=== PATIENT | male | born 1955 | race Caucasian/White ===

== ENCOUNTER 2019-08-18 16:24 | Outpatient (RCR) | payer BC, SELFPAY | END 2019-09-04 23:59 | disposition home or self-care (01) | LOC: SPT 16:24 | PROVIDERS: Family Provider Nurse Practitioner Family; PCP Nurse Practitioner Family; Referring Provider Nurse Practitioner Family; Visit Provider Nurse Practitioner Family | DX: M17.12 Unilateral primary osteoarthritis, left knee (principal); Z47.89 Encounter for other orthopedic aftercare; Z96.652 Presence of left artificial knee joint | CPT/HCPCS: 97110; 97161 ==

== ENCOUNTER 2019-09-05 06:00 | Outpatient (RCR) | payer BC, SELFPAY | END 2019-09-22 23:00 | disposition home or self-care (01) | LOC: SPT 06:00 | PROVIDERS: Family Provider Nurse Practitioner Family; PCP Nurse Practitioner Family; Referring Provider Nurse Practitioner Family; Visit Provider Nurse Practitioner Family | DX: Z96.652 Presence of left artificial knee joint (principal); Z98.890 Other specified postprocedural states | CPT/HCPCS: 97110 ==

== ENCOUNTER 2024-09-13 21:23 | Emergency (ER) | payer OTHER, SELFPAY ==
[2024-09-13 21:24] VITALS: BP 151/94; PULSE 73; RESP 18; TEMP 37; O2SAT 97; BMI 22.8
--- NOTE | 2024-09-13 21:27 | XRR_ITS ---
PROCEDURE INFORMATION: Exam: XR Right Hip Exam date and time: 09/13/2024 9:45 PM Age: 69 years old Clinical indication: Hip pain; Right hip; Prior surgery; Surgery date: <1 month; Surgery type: RT hip surgery 2 weeks ago; Additional info: Probable hip prosthesis dislocation TECHNIQUE: Imaging protocol: Radiologic exam of the right hip. Views: 1 view hip with pelvis when performed. COMPARISON: No relevant prior studies available. FINDINGS: Tubes, catheters and devices: Right hip arthroplasty changes with superior dislocation of the femoral component outside of the acetabular component, negative for fracture seen. Bones/joints: Lumbar spine degenerative disc space disease. Soft tissues: Unremarkable. XR/XR hip RT 2-3V wo/w pel* [id number] IMPRESSION: 1. Right hip arthroplasty changes with superior dislocation of the femoral component outside of the acetabular component, negative for fracture seen. 2. Lumbar spine degenerative disc space disease.
--- NOTE | 2024-09-13 21:33 | ED_ITS ---
HPI - Extremity Problem General: Chief complaint: Extremity Injury, Lower Stated complaint: R hip pain Time Seen by Provider: 09/13/24 21:23 History of Present Illness: 69-year-old male with a history of hip p rosthesis who presents emergency room by ambulance with right hip pain. He says he says he was standing and bit down to pick something up and he felt like it popped out of place. His leg is positioned flexed and rotated over his other leg. Neurovascularly intact. No other injuries. He had the hip replaced about 4 weeks ago and [place] with Dr. Ayan Borjas. 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 He is had no issues with it until today. No trauma. Related Data Allergies Allergy/AdvReac Type Severity Reaction Status Date / Time gabapentin Allergy Unknown Unverified 08/09/19 08:25 Review of Systems Narrative: Constitutional symptoms: Negative except as documented in HPI. Skin symptoms: Negative except as documented in HPI. Eye symptoms: Negative except as documented in HPI. ENMT symptoms: Negative except as documented in HPI. Respiratory symptoms: Negative except as documented in HPI. Cardiovascular symptoms: Negative except as documented in HPI. Gastrointestinal symptoms: Negative except as documented in HPI. Genitourinary symptoms: Negative except as documented in HPI. Musculoskeletal symptoms: Negative except as documented in HPI. Neurologic symptoms: Negative except as documented in HPI. Psychiatric symptoms: Negative except as documented in HPI. Endocrine symptoms: Negative except as documented in HPI. Physical Exam Narrative: EXAM NARRATIVE: General: Alert, no acute distress. Skin: Warm, dry. Head: Normocephalic, atraumatic. Neck: Supple, trachea midline. Eye: Extraocular movements are intact. Ears, nose, mouth and throat: mucosa moist. Cardiovascular: Regular, Normal peripheral perfusion. Respiratory: Lungs are clear to auscultation, respirations are non-labored, breath sounds are equal, Symmetrical chest wall expansion. Gastrointestinal: Soft, Nontender, Non distended Musculoskeletal: Leg is flexed at the knee. Whole leg is rotated internally over his other leg. Neurological: Alert and oriented, No focal neurological deficit observed. Psychiatric: Cooperative, appropriate mood & affect. Course Vital Signs: Vital signs: Vital Signs Temperature 98.6 F 09/13/24 21:24 Pulse Rate 73 09/13/24 21:24 Respiratory Rate 18 09/13/24 21:24 Blood Pressure 151/94 09/13/24 21:24 Pulse Oximetry 97 09/13/24 21:24 Oxygen Delivery Me thod Room Air 09/13/24 21:24 MDM - Extremity (Nontraumatic) Medical Decision Making X-ray of the hip: This shows a dislocation. Second film crosstable shows that this is likely posterior. Films were interpreted by myself the emergency room provider and pending final radiology review. Consultation: I spoke with Dr. Bray as this is his patient. He recommended crosstable films and then I discussed the manner for which we would reduce this. He wants him and I knee immobilizer and will see him in clinic he said within 2 weeks. After I got off the phone his family says he has an appointment actually next Friday. Procedural sedation Time: 2244. Confirmed: Patient and procedure correct. Consent: Consent: The risks and benefits of monitored anesthesia care, including the risk of aspiration, nausea/vomiting and the risks of not performing the procedure, including severe pain and inability to complete the procedure, were all discussed with the patient. The alternatives of performing the procedure, including local anesthesia and IV analgesia, also discussed. The patient has a ride home available Indication: Closed reduction. Monitoring: Cardiac, blood pressure, continuous pulse oximetry. Preparation: Suction, IV access, Constant attendance, Supplemental oxygen. ASA Class: I- healthy patient. No significant family history of sedation complications See ER physician note for summary of the patient's present medication list and for drug allergy and intolerance history Physical exam: Airway: appears normal, Heart: regular rate and rhythm, Breath sounds: equal. Pre sedation vital signs: See nurse's notes. Procedural sedation: 150 mg IV propofol. . Post sedation vital signs: See nurse's notes. Patient tolerated: Well. Complications: The patient was recovered from the sedation without complication or incident. Post sedation condition: Patient returned to pre-sedation level of awareness. The monitoring was discontinued at this time. Performed by: Self. Notes: Pt attended by independent trained observer time of sedation was 15 minutes. . Fracuture / Dislocation procedure Time: 2244 Confirmed correct: Patient, procedure, sight. Consent: Patient Indication: Dislocation Location: Right hip. Pre procedure exam: Sensory intact, Procedural sedation: (repeat): IV propofol 150 mg Monitoring: Cardiac, blood pressure and pulse oximiter Technique: traction - counter traction. Post-procedure exam: _ alignment improved, circulatory neuro intact. Immobilization: Knee immobilizer as per orthopedics. Patient tolerated: Well Complications: None Performed by (rpt): Self Procedure time: 10 minutes Postreduction films of the right hip: This shows resolution of hip dislocation and reduction. This was reviewed and interpreted by myself the emergency room georges nick. I also reviewed the radiology report. Films were interpreted by myself the emergency room provider and pending final radiology review. Assessment and plan: Dislocation of hip prosthesis. ?Reduced. Knee immobilizer placed. - Discharged home - Discussed plan with patient. Answered any questions. - Evaluation and treatment of this problem were appropriate in the emergency setting. XR interpretation done by ED provider, pending radiology final review Discharge Plan Discharge Patient Disposition: Home Clinical Impression: Dislocation of internal right hip prosthesis Qualifiers: Encounter type: initial encounter Qualified Code(s): T84.020A - Dislocation of internal right hip prosthesis, initial encounter Condition: Stable Discharge Orders: Discharge ED (Routine); Ordered 09/13/24 Ordered By: Emma Wright Referrals: Piotr Borjas MD [Referring] - 09/20/24 (Keep your scheduled appointment with Dr. Borjas please) Sun Gonsales APN [Primary Care Provider] - Discharge Diet: As Directed Discharge Activity: Limit activity as instructed Patient Instructions: Hip Dislocation (ED), Opioid Safety, Pain Management Activity Restrictions/Additional Instructions: Keep your scheduled follow-up for Friday with Dr. Borjas. Wear knee immobilizer anytime you are up. Thank you for choosing [facility] for your healthcare needs today. Please realize this is an emergency room and that we are providing you with a medical screening exam and this may not be complete and all inclusive of all the testing and or work up that you may need to determine your ailment or severity of your illness. You have been screened and evaluated and felt safe for discharge. Health conditions do change or evolve sometimes and as such it is important that you follow up with your Primary Doctor to be re checked, 3-5 days is a general good time frame for follow up. You are always welcome to return to the ED for re assessment if your symptoms are worsening or you have new concerns Print Language: Belgian Coding Level of Care Code ED Steel Wool Machine Operator for Dc Daley
[2024-09-13] MEDS: HYDROmorphone 0.5 MG/0.5 ML INJ 1 MG IVP (22:03)
--- NOTE | 2024-09-13 22:11 | XRR_ITS ---
PROCEDURE INFORMATION: Exam: XR Right Hip Exam date and time: 09/13/2024 10:20 PM Age: 69 years old Clinical indication: Injury or trauma; Fall; Other: X table xray requested; Prior surgery; Surgery date: <1 month; Surgery type: Hip surgery; Additional info: Cross table hip requested TECHNIQUE: Imaging protocol: Radiologic exam of the right hip. Views: 1 view hip with pelvis when performed. COMPARISON: CR (PELVIS, ) 09/13/2024 9:45 PM FINDINGS: Bones/joints: Right hip arthroplasty changes with posterior dislocation of the femoral component outside of the acetabular component, negative for fracture seen. Lumbar spine degenerative disc space disease. Soft tissues: Unremarkable. XR/XR hip RT 1V wo/w pel [id number] IMPRESSION: 1. Right hip arthroplasty changes with posterior dislocation of the femoral component outside of the acetabular component, negative for fracture seen. 2. Lumbar spine degenerative disc space disease.
[2024-09-13] MEDS: ondansetron 2 mg/ML SDV 2 mL 4 MG IVP (22:49)
--- NOTE | 2024-09-13 23:00 | XRR_ITS ---
PROCEDURE INFORMATION: Exam: XR Right Hip Exam date and time: 09/13/2024 11:17 PM Age: 69 years old Clinical indication: Hip pain; Right hip; Prior surgery; Surgery date: <1 month; Additional info: Post reduction TECHNIQUE: Imaging protocol: Radiologic exam of the right hip. Views: 1 view hip with pelvis when performed. COMPARISON: CR (PELVIS, ) 09/13/2024 10:20 PM FINDINGS: Bones/joints: Right hip arthroplasty changes with reduction of the previously seen dislocation with normal anatomic alignment, negative for fracture. Soft tissues: Unremarkable. XR/XR hip RT 1V wo/w pel [id number] IMPRESSION: Right hip arthroplasty changes with reduction of the previously seen dislocation with normal anatomic alignment, negative for fracture.
[2024-09-13] MEDS: propofol 10 mg/mL SDV 20 mL 70 MG IVP ×2 (23:25→23:27)
[2024-09-13 23:32] VITALS: BP 134/103; PULSE 74; RESP 15; O2SAT 95
[2024-09-13 23:51] VITALS: BP 134/103; PULSE 70; O2SAT 95
--- NOTE | 2024-09-14 06:42 | PC.NURSE ---
Patients name is no longer listed in the pixas to waste the remainder of the propofol. Nurse wasted the propofol at the ER med counter with Eleanor TYSON and Shelby TYSON as witnesses.
--- NOTE | 2024-09-14 06:44 | PC.NURSE ---
WITNESSED PROPOFOL WASTE WITH JAH WATSON.
== END 2024-09-13 23:52 | disposition home or self-care (01) ==
PROVIDERS: Emergency Provider Emergency Medicine; PCP Nurse Practitioner Family
DX: T84.020A Dislocation of internal right hip prosthesis, initial encounter (principal); X58.XXXA Exposure to other specified factors, initial encounter
CPT/HCPCS: 27265; 36415; 73501; 73502; 96374; 96375; 99152; 99285; J1171; J2405; J2704

== ENCOUNTER 2024-12-05 14:40 | Emergency (ER) | payer OTHER, SELFPAY ==
[2024-12-05] VITALS (7 sets, daily range): BP systolic 110–147; BP diastolic 72–94; PULSE 90–111; RESP 15–16; TEMP 36.6; O2SAT 91–99; BMI 22.0
--- NOTE | 2024-12-05 14:47 | ED_ITS ---
HPI - Extremity Problem General: Chief complaint: Extremity Injury, Lower Stated complaint: HIP PAIN Time Seen by Provider: 12/05/24 14:45 History of Present Illness: 69-year-old male presents emergency room complaining of right hip pain. He was outdoors in an undeveloped area he squatted down to relieve himself and felt a popping sensation in his right hip and was unable to stand or extend at the hip. He has previously had a right hip arthroplasty he has had dislocation in the past he had this initially done in [place] in [facility] he did follow-up with him at this point they had not planned to do a revision on the hip. He denies any other injuries in the course of the fall no chest pain no abdominal pain did not strike his head there is no loss of consciousness. He arrives by ambulance had not received any pain medicine then wrote Associated symptoms: Deny chest pain, fever(s) or rash Related Data Previous Rx's ?Medication ?Instructions ?Recorded hydrocodone 5 mg-acetaminophen 325 1 tab PO Q6H PRN pa in #12 tabs 12/05/24 mg tablet Allergies Allergy/AdvReac Type Severity Reaction Status Date / Time gabapentin Allergy Unknown Unverified 08/09/19 08:25 Review of Systems Const: Denies: fever(s) or chills Card: Denies: chest pain Resp: Denies: dyspnea GI: Denies: abdominal pain : Denies: dysuria, urinary frequency or urinary urgency Musc: Reports: joint pain (Right hip); Denies: neck pain or back pain Skin/Breast: Denies: rash PFSH ED PFSH: Surgical History (Updated 12/05/24 @ 16:47 by Ritchie Beckett DO) History of total right hip arthroplasty Physical Exam Const: GENERAL APPEARANCE: cooperative ORIENTATION/CONSCIOUSNESS: Yes awake, Yes oriented to person, Yes oriented to place and Yes oriented to time HENMT: COMMON NORMALS: normocephalic, atraumatic and hearing grossly normal bilaterally HEAD & SCALP: normocephalic and atraumatic Resp: COMMON NORMALS: normal respiratory effort, No retractions, No use of accessory muscles and clear to auscultation bilaterally AUSCULTATION: clear to auscultation bilaterally Cardio: COMMON NORMALS: regular rate, regular rhythm and No murmurs present (Cardio) RATE: regular rate RHYTHM: regular rhythm GI: COMMON NORMALS: Soft to palpation and No hepatosplenomegaly present AUSCULTATION: Yes normoactive bowel sounds PALPATION: Yes Soft to palpation, No Tenderness to palpation present (GI), No Guarding due to palpation present (GI) and Yes No hepatosplenomegaly present Extremity: COMMON NORMALS: normal to inspection, capillary refill normal, no clubbing, cyanosis or edema, no calf tenderness and no pedal edema OTHER: Patient holding his right hip internally rotated and flexed at the hip. Extreme pain unable to straighten. Dorsalis pedis posterior tibialis pulses are normal Neuro: SENSORIUM/ORIENTATION: Yes oriented to person, Yes oriented to place and Yes oriented to time Skin: COMMON NORMALS: no rashes or lesions noted GENERAL SKIN EXAM: no rashes or lesions noted Procedures Orthopedic Joint Reduction Joint #1: Time Out Performed: Yes Side: right Joint Reduction Location: hip Analgesia: procedural sedation Technique used: traction/counter-traction Post-reduction neuro exam: intact Post-reduction vascular: intact Post Reduction X-Ray Obtained: Yes Post Reduction X-Ray Results: reduced Splint Applied: Yes (Knee brace) Patient Tolerated Procedure: well Additional Comments: Initially joint was reduced however by the time we are able to get x-ray to confirm it had dislocated again. We reduced again and had similar results and then we could feel clinically the reduction on palpation appeared to be fully reduced however by the time we got x-rays and it was dislocated again. On the third attempt it was reduced and the leg held immediately and full extension with traction in place and knee immobilizer with immobilizer was applied x-ray confirmed reduction of the joint. Procedural Sedation Indication: fracture/dislocation reduction ASA Class: I Preparation: clinical research monitor applied, pulse oximeter, supplemental O2 applied, suction/airway equipment at bedside and IV secured Fentanyl: IV Midazolam: IV Additional Comments: Patient given titrated doses of Versed and fentanyl. Patient given a total of 8 mg of Versed 250 mg of fentanyl and this was titrated over a period of time to achieve adequate sedation to allow for reduction. Because of the difficulty with keeping the joint in position requiring repeat dosing to reduce the dislocation 3 times before it remained in place. Course Vital Signs: Vital signs: Vital Signs Temperature 97.9 F 12/05/24 14:43 Pulse Rate 90 12/05/24 18:00 Respiratory Rate 15 12/05/24 16:54 Blood Pressure 113/78 12/05/24 18:00 Pulse Oximetry 96 12/05/24 18:00 Oxygen Delivery Me thod Nasal Cannula 12/05/24 15:00 MDM - Extremity (Nontraumatic) Medical Decision Making Given the ease with which the joint is spontaneously reducing patient will need to have orthopedic consult. He may require revision of the joint reviewed discussed this with him. Discharge the patient home with hydrocodone. Patient was also given crutches and a knee immobilizer. He will follow-up at [place] with the orthopedic surgeon originally did the hip arthroplasty Medical Records I reviewed the patient's medical records. Lab Data I reviewed the patient's lab results. Laboratory Results Ethyl Alcohol < 10 mg/dL (0-10) 12/05/24 15:10 All radiology interpretation(s) finalized by discharge Discharge Plan Discharge Patient Disposition: Home Clinical Impression: History of total right hip arthroplasty Dislocation of hip prosthesis Qualifiers: Encounter type: initial encounter Qualified Code(s): T84.029A - Dislocation of unspecified internal joint prosthesis, initial encounter Condition: Stable Prescriptions: New hydrocodone-acetaminophen 5-325 mg tablet 1 tab PO Q6H PRN (Reason: pain) Qty: 12 0RF Discharge Orders: Discharge ED (Routine); Ordered 12/05/24 Ordered By: Ritchie Beckett Referrals: Sun Gonsales APN [Primary Care Provider, Nurse Practitioner] Discharge Diet: Usual diet Discharge Activity: Limit activity as instructed Patient Instructions: Opioid Safety, Pain Management Activity Restrictions/Additional Instructions: Thank you for choosing [facility] for your healthcare needs today. It is very important that you follow up as instructed or that you return to the Emerg ency Department should you have concerns or if your condition changes or worsens in any way. You were seen in the emergency room with a dislocation of your right hip prosthesis (artificial joint). The joint was successfully reduced but in the course of reducing it it spontaneously dislocated twice and needed to be reduced a total of 3 times. You should follow-up with your primary orthopedist to discuss the number of dislocations you have had. You should avoid extreme flexion at the hip. The easiest way to do this is to wear the knee immobilizer to make it difficult to to flex completely at the hip. Recommend you keep the knee immobilizer in place and use crutches until you follow-up with your orthopedist. Print Language: Kiswahili Coding Level of Care Code ED Belt Repairer for Dc Daley
--- NOTE | 2024-12-05 14:47 | XRR_ITS ---
PROCEDURE INFORMATION: Exam: XR Right Hip Exam date and time: 12/05/2024 3:27 PM Age: 69 years old Clinical indication: Hip pain and pelvic pain; Right hip; Prior surgery; Surgery date: 1-6 months; RT hip pain; RT hip replacement x 5 mo ago with recent dislocation TECHNIQUE: Imaging protocol: Radiologic exam of the right hip. Views: 1 view hip with pelvis when performed. COMPARISON: CR XR hip RT 1V wo/w pel [id number] 09/13/2024 11:17 PM FINDINGS: Bones/joints: Superior dislocation of this patient's right hip prosthesis. The metal is intact. No fracture is seen. Soft tissues: Unremarkable. XR/XR hip RT 2-3V wo/w pel* [id number] IMPRESSION: Dislocated right hip.
[2024-12-05] MEDS: ondansetron 2 mg/ML SDV 2 mL 4 MG IVP (14:57)
[2024-12-05] MEDS: morphine 4 mg/mL SDV 1 mL IVP (14:57)
[2024-12-05 15:33] LABS: Alcohol Level < 10 mg/dL (0-10)
[2024-12-05] MEDS: fentaNYL 50 mcg/mL INJ 2mL IVP ×3 (15:42→16:31)
[2024-12-05] MEDS: fentaNYL 50 mcg/mL INJ 2mL 100 MCG IVP (16:27)
[2024-12-05] MEDS: midazolam 1 mg/mL INJ 2 mL 6 MG IVP (16:28)
[2024-12-05] MEDS: midazolam 1 mg/mL INJ 2 mL 2 MG IVP (16:28)
--- NOTE | 2024-12-05 16:36 | XR_ITS ---
WS: [id number] XR hip RT 2-3V wo/w pel* [id number] REASON FOR EXAM: POST REDUCTION RT HIP FINDINGS: Soft tissue swelling soft tissue swelling superior and medial to the femoral component of the total right hip arthroplasty. Gnosticism of normal anatomic alignment of the previously anteriorly dislocated total right hip arthroplasty. Moderately displaced very small fracture fragment from the medial greater tuberosity. XR/XR hip RT 2-3V wo/w pel* [id number] IMPRESSION: Reduction of previous total right hip arthroplasty dislocation. Very small avu lsion fracture from the greater trochanter.
== END 2024-12-05 18:03 | disposition home or self-care (01) ==
PROVIDERS: Emergency Provider Family Medicine; PCP Nurse Practitioner Family
DX: T84.020A Dislocation of internal right hip prosthesis, initial encounter (principal); X58.XXXA Exposure to other specified factors, initial encounter; Z96.641 Presence of right artificial hip joint
CPT/HCPCS: 27265; 73502; 80307; 94799; 96374; 96375; 99152; 99285; J2250; J2270; J2405; J3010

== ENCOUNTER 2025-01-17 12:41 | Emergency (ER) | payer OTHER, SELFPAY ==
[2025-01-17 12:46] VITALS: BP 150/92; PULSE 87; RESP 16; TEMP 36.7; O2SAT 94; BMI 20.5
--- OUTSIDE RECORDS SUMMARY | 2025-01-17 12:54 | XMS_ITS | Data Portability ---
Author Organization [facility] - Piotr Upton, [facility] Address [address] [place] [address] Assessment No assessment recorded. Plan of Treatment Reminders Order Date Submit Date Provider Last Modified By Organization Details Last Modified Time Details Appointments None recorded. Lab rapid strep group A, throat 2019 020 [email or web address] Not available 0 08:32:45 Referral None recorded. Procedures None recorded. Surgeries None recorded. Imaging None recorded. Medication Orders dexamethas one sodium phosphate 10 mg/mL injection solution 2019 020 [email or web address] Not available 0 16:16:00 Zyrtec-D 5 mg-120 mg tablet,ext ended release 2019 020 [facility]FACE [facility], [address] [place] [address], [id number], 0 16:15:34 Augmentin 875 mg-125 mg tablet 2019 020 [facility], [address] [place], [address], 0 16:15:34 promethazi ne 6.25 mg-codeine 10 mg/5 mL syrup 2019 020 [facility], [address] [place], [address], 0 16:15:35 Patient TargetsNo targets recorded. Patient Instructions Encounter Date Encounter Id Patient Instructions Last Modified By Organization Details Last Modified Time 08/30/2019 [id number] Clinic note and treatment plan reviewed. I agree with plan and will cont to monitor. [email or web address] Not available 08/31/2019 08:38:48 Reason for Referral None Reported. Results Created Date Observation Date Name Description Value Unit Range Abnormal Flag Note LastModifiedBy Organization Detail LastModifiedTime Result Notes None recorded. Problems Name Problem SNOMED Code Status Onset Date Resolution Date Notes Provider Name and Address Organization Details Recorded Time Degeneratio n of interverteb ral disc 10964682 Active 2019 [place] 0 15:44:42 History of total knee arthroplast y 3860318568710 Active 2019 [place] [place] 0 15:44:48 Problem Notes None recorded. Procedures Surgical History Date Name Laterality Status Provider Name and Address Organization Details Recorded Time [facility] 15:47:04 [facility] 08/30/2019 15:47:18 [facility] 08/30/2019 15:47:24 Imaging Results None recorded. Procedure Notes None recorded. Medical Equipment None Reported. Allergies Allergen ID Allergen Name Allergen Category Reaction Reaction Severity Criticality Documentation Date Start Date Code Code System Note Provider Name and Address Organization Details Recorded Time 21710 gabapenti n medicatio n Not available Not available Not available 08/30/2019 12759 [facility]Norm [facility] [place] 0 15:43:35 Medications Name Sig Start Date Stop Date Status Note LastModified by Organization Details LastModified Time cyclobenzap rine 10 mg tablet active Not Available Not Available Not Available promethazin e-DM 6.25 mg-15 mg/5 mL oral syrup 08/30 completed Not Available Not Available Not Available Zyrtec-D 5 mg-120 mg tablet,exte nded release Take 1 tablet every 12 hours by oral route. 2019 active Not Available Not Available Not Avai lable azithromyci n 250 mg tablet 08/30 completed Not Available Not Available Not Available promethazin e 6.25 mg-codeine 10 mg/5 mL syrup TAKE FIVE ML BY MOUTH EVERY 6 HOURS active Not Available Not Available No t Available lorazepam 0.5 mg tablet active Not Available Not Available Not Available hydrocodone 7.5 mg-acetamin ophen 325 mg tablet 1-2 every 4 hours active Not Available Not Available No t Available diclofenac sodium 50 mg tablet,dinah yed release active Not Available Not Available Not Available levofloxaci n 500 mg tablet 08/30 completed Not Available Not Available Not Available dexamethaso ne sodium phosphate 10 mg/mL injection solution Take 1 mL by injection route. 2019 active Not Available Not Available Not Avai lable amoxicillin 875 mg-potassiu m clavulanate 125 mg tablet TAKE ONE TABLET BY MOUTH EVERY TWELVE HOURS FOR SEVEN DAYS active Not Available Not Available No t Available olmesartan 40 mg tablet bid active Not Available Not Available Not Available Vitals Date Recorded Body weight Heart rate Oxygen saturation Oxygen saturation in Arterial blood by Pulse oximetry Systolic And Diastolic Provider Name and Address Organization Details Last Updated DateTime 0 76299.3 4 g 86 /min 98 % 98 % 140/92 mm[Hg] Nick Upton 0 15:43:21 Social History Question Answer Notes LastModified by Organizat ion Details LastModified Time Tobacco Smoking Status Current Every Day Smoker Not Available [facility] 05/09/2020 03:38:55 Are You Blind Or Do You Have Difficulty Seeing? No [id number] Information n ot available 05/09/2020 What Is Your Level Of Caffeine Consumption? Heavy [id number] Information not available 05/09/2020 In The 14 Days Before Symptom Onset, Have You Had Close Contact With A Laboratory-confirm ed COVID-19 While That Case Was Ill? No [id number] Information n ot available 05/09/2020 In The 14 Days Before Symptom Onset, Have You Had Close Contact With A Person Who Is Under Investigation For COVID-19 While That Person Was Ill? No [id number] Information not available 05/09/2020 Have You Been To An Area Known To Be High Risk For COVID-19? No [id number] Information not available 05/09/2020 Are You Deaf Or Do You Have Serious Difficulty Hearing? No [id number] Information not available 05/09/2020 What Type Of Diet Are You Following? REGULAR [id number] Information n ot available 05/09/2020 Hard Of Hearing Or Deaf In One Or Both Ears? No [email or web address] Information not available 08/30/2019 Legally Blind In One Or Both Eyes? No [email or web address] Information no t available 08/30/2019 Live Alone Or With Others? With Others [email or web address] Information not available 08/30/2019 Risk Assessment Low [email or web address] Informati on not available 08/30/2019 Marital Status [email or web address] Informatio n not available 08/30/2019 How Many Children Do You Have? 2 [id number] Information not available 05/09/2020 Performs Monthly Self-breast Exam? No Information no t available 08/30/2019 Seat Belts Used Routinely Yes Information not available 08/30/2019 Are You Sexually Active? Yes [id number] Information not available 05/09/2020 Smoke Alarm In Home Yes [email or web address] Information not available 08/30/2019 Are You Passively Exposed To Smoke? No [email or web address] Information no t available 08/30/2019 General Stress Level High [email or web address] Information not available 08/30/2019 Do You Use Sunscreen Routinely? Yes [id number] Information not available 05/09/2020 How Many Years Have You Smoked Tobacco? 45 [id number] Information not available 05/09/2020 Do You Have Difficulty Walking Or Climbing Stairs? No [id number] Information not available 05/09/2020 Sex: Unknown Functional Status Question Answer Note LastModified by Organizat ion Details LastModified Time What is your level of alcohol consumption? Moderate [id number] Information not available 05/09/2020 Do you or have you ever used smokeless tobacco? Never used smokeless tobacco [id number] Information not available 05/09/2020 Are you currently employed? Yes [id number] Information not available 05/09/2020 Do you have difficulty doing errands alone? No [id number] Information not available 05/09/2020 Are you able to care for yourself? Yes [id number] Information not available 05/09/2020 What is your occupation? [employer] [id number] Information not available 05/09/2020 Do you have difficulty dressing or bathing? No [id number] Information not available 05/09/2020 Do you or have you ever used e-cigarettes or vape? Never used electronic cigarettes [id number] Information not available 05/09/2020 What is your exercise level? None [id number] Information not available 05/09/2020 Mental Status Question Answer Note LastModified by Organization D etails LastModified Time Do you have difficulty concentrating, remembering or making decisions? No [id number] Information no t available 05/09/2020 Family History Nothing Reported. Medical History No medical history recorded. Past Encounters Encounter ID Performer Location Encounter Start Date Encounter Closed Date Diagnosis/Indication Diagnosis SNOMED-CT Code Diagnosis ICD10 Code Diagnosis Note [id number] [facility] Main Office [address] [place] [id number] 08/30/2019 15:14:33 08/30/2019 16:16:41 Acute sinusitis 31771443 J01.90 strep negative. Advised pt that pain is most likely from intubation s/p surgery that is begin aggravated by sinus drainage. pt advised to complete course of antibiotic s, alternate tylenol/ib u for fever, stay well hydrated, and to follow up to clinic if symptoms don't resolve or worsen Health Concerns Section Related Observation LastModified by Organization Detai ls LastModified Time None Recorded Concern Status LastModified by Organization Details LastModified Time None Recorded Advance Directives Directive None Recorded Payers Insurance Date Sequence Insurance Name Policy Number Policy [employer] Covered Member ID [employer] Member ID Guarantor Name 08/30/2019 1 [place] [id number] Tadeo Ta [id number] Tadeo Ta Notes Date Note Type Note Provider Name and Address Organization Details Recorded Time 08/30/2019 text/html Throat PainReported bypatient.Location :bilateral Quality:sharp Severity:mild Context:URI; trauma; stress; contacts with URI Alleviating Factors:antihistam benoit Associated Symptoms:no coughing with sputum; no throat tickle/itch; no globus sensation; no dysphagia; no burping; no neck/shoulder muscle tension; no weight loss; no fever; no lump in neck; no dyspnea; no daytime somnolence; no ear pain; no ear infection; no nasal congestion; no postnasal drip; no oral mucosal lesion; no hemoptysis;stress; choking;odynophagi a;hoarseness;loss of appetite New pt here for a swollen throat x3 weeks, he states that he has difficulty swallowing since post-knee replacement also x3 weeks ago. He is having dysphagia as well as pain when trying to swallow, he has no prior h/o issues with this. He is also having s/sx of a sinus infection Piotr Upton MD [address] [place], [phone], [place] [facility] Piotr Upton 08/31/2019 08:38:52
--- OUTSIDE RECORDS SUMMARY | 2025-01-17 12:55 | XMS_ITS | Patient Health Record ---
Author Organization [facility] Address [address] [place] [address] Care Team Providers [place] [employer] Name Role Phone Dru [facility] Primary Care Provider Shaun Babcock Unavailable [phone] GONSALES, [facility] Unavailable Unavailable Allergies Allergen (clinical drug ingredient) Drug/Non Drug Allergy documented on EMR Reaction Allergy Type Onset Date Status azithromycin Azithromycin rash Drug Allergy 03/11/2024 Active Results Component Value Reference Range Flag Notes CBC w\ Auto Diff 16001 Reviewed date:11/18/2024 09:15:14 AM Interpretation: Performing Lab: Notes/Report: Diagnosis Description: Essential (primary) hypertension WBC 8.4 4.5-11.0 X10'3 RBC 6.53 4.50-5.90 X10'6 HI Hgb 17.1 13.5-17.5 G/DL Hct 56.8 41.0-53.0 % HI MCV 87.0 80.0-100.0 FL MCH 26.2 27.0-31.0 PG LOW MCHC 30.1 31.0-37.0 G/DL LOW Platelet 286 150-400 X10'3 RDW-SD 62.9 35.0-49.0 FL HI RDW-CV 20.5 12.2-15.6 % HI MPV 10.6 9.2-12.0 FL Neutro Auto% 62.4 40.0-70.0 % Lymph Auto% 22.0 22.0-44.0 % Avery Auto% 7.1 3.0-7.0 % HI Eos Auto% 6.2 2.0-4.0 % HI Baso Auto% 2.1 0.0-1.0 % HI Imm Gran% .2 .0-.4 % Neutro Abs 5.24 .80-7.70 Absolute Neutrophil Count 5240 NA Lymph Abs 1.85 .10-4.10 Avery Abs .60 .20-1.00 Eos Abs .52 .00-.40 HI Baso Abs .18 .00-.20 Imm Gran Abs .02 .00-.10 NRBC# .00 .00-.20 NRBC% .00 .00-.20 /100 intact WBC's Comprehensive Metabolic Pane l (CMP) 93122 Reviewed date:11/18/2024 09:15:37 AM Interpretation: Performing Lab: Notes/Report: Diagnosis Description: Essential (primary) hypertension Glucose Serum 70 71-110 MG/DL LOW Testing p erformed at [facility], [address] [place] [address] [place] [address]. CLIA ID#: [id number] BUN 13 7-21 MG/DL Creat .77 .57-1.17 MG/DL J-yzbvda-f-benzoquinon e imine (NAPQI) is a metabolite of acetaminophen, NAPQI concentrations of apparoximately 10 mg/L correlation to toxic levels of acetaminophen demonstrates a greater than or equil to 10% change in results. NAPQI concentrations greater than this may lead to falsely depressed results for patient samples. Use of this assay is not recommended for patients undergoing treatment with phenindione, due to the potential for falsely depressed results. GFR 97.6 NA Calculation pe rformed from GFR calculator provided by the [employer]. Glomerular Filtration rate(GRF) is the best overall index of kidney function. Normal GFR varies according to age,sex, body size, and declines with age. The [employer] recommends using the CKD-EPI Creatinine Equation(2020) to estimate GFR. BUN/Creat Ratio 16.9 12.0-20.0 % Total Protein 7.5 5.8-8.0 G/DL Albumin 4.3 3.2-4.8 G/DL Globulin 3.2 2.3-3.5 G/DL Alb/Glob 1.3 0.8-2.2 Calcium 9.2 8.7-10.4 MG/DL Sodium 136 136-145 MMOL/L Potassium 4.8 3.5-5.1 MMOL/L Chloride 100 98-107 MMOL/L CO2 26.7 20.0-31.0 MMOL/L Anion Gap 14 5-15 Alk Phos 128 46-116 HI Bili Total .4 .3-1.2 MG/DL Use of this assay is not recommended for patients undergoing treatment with eltrombopag due to the potential for falsely elevated results. AST/SGOT 27 15-37 UNIT/L ALT/SGPT 19 12-78 UNIT/L Osmo Serum,Calculated 281 280-300 MOSM/KG Lipid Panel Reflex DLDL 8006 1, 49984 Reviewed date:11/18/2024 09:03:08 AM Interpretation: Performing Lab: Notes/Report: Diagnosis Description: Essential (primary) hypertension Trig 66 NA Classification Guidelines:Triglyceride s Adults: >20yrs Desirable <150 Borderline High 150-199 High 200-499 Very high >=500 Children: Male 0-4 yr 22-99 5-9 yr 30-101 10-14 yr 32-125 15-19 yr 37-148 Children: Female 0-4 yr 34-112 5-9 yr 32-105 10-14 yr 37-131 15-19 yr 39-132 Chol 159 <=200 MG/DL HDL 83 30-72 MG/DL HI Reference Ranges:HDL Male: 5-9y 38-75 10-14y 37-74 15-19y 30-63 >=20y 40-59 Female: 5-9y 36-73 10-14y 37-70 15-19y 35-74 >=20y 40-59 CH/HDL 1.9 0.0-4.9 RATIO LDL 63 0-130 MG/DL LDL result is inaccurate , if Trig is >400 mg/dl. See DLDL result. Thyroid Stimulating Hormone (TSH) 96147 Reviewed date:11/18/2024 09:02:46 AM Interpretation: Performing Lab: Notes/Report: Diagnosis Description: Encounter for screening for other suspected endocrine disorder TSH 1.569 .358-3.740 MlU/ML PSA Medicare Screening--G010 3 Reviewed date:11/18/2024 09:14:49 AM Interpretation: Performing Lab: Notes/Report: Diagnosis Description: Encounter for screening for malignant neoplasm of prostate PSA 2.35 .00-4.00 NG/ML PSA concen trations, regardless of the value, should not be interpreted as definitive evidence for the presence or absence of prostate cancer. Cervical Spine AP/Lat 2-3 Vi ews-[id number] Reviewed date:11/25/2024 07:19:37 AM Interpretation: Performing Lab: Notes/Report: [id number]=iSite Hip 2-3 View Uni Right w/ Pe lvis--03385 Reviewed date:08/05/2024 01:02:14 PM Interpretation: Performing Lab: Notes/Report: See Below For Report Hip 2-3 View Uni Right w/ Pelvis Read See Below For Report IH Lumbosacral Spine Comp AP /Lat w/ Obl - 00074 Reviewed date:08/05/2024 01:02:25 PM Interpretation: Performing Lab: Notes/Report: [id number]&org=iSite IH Lumbosacral Spine Comp AP /Lat w/ Obl - 71206 Reviewed date:08/05/2024 01:03:18 PM Interpretation: Performing Lab: Notes/Report: See Below For Report Lumbosacral Spine Comp AP/Lat w/ Obl Cervical Spine AP/Lat 2-3 Vi ews-[id number] Reviewed date:11/25/2024 07:16:03 AM Interpretation: Performing Lab: Notes/Report: See Below For Report Cervical Spine AP/Lat 2-3 Views Diagnosis Description: Cervicalgia Read See Below For Report IH Shoulder Min 3V Right - 7 3030 Reviewed date:11/25/2024 07:16:32 AM Interpretation: Performing Lab: Notes/Report: [id number]=iSite IH Shoulder Min 3V Right - 7 3030 Reviewed date:11/25/2024 07:15:27 AM Interpretation: Performing Lab: Notes/Report: See Below For Report Shoulder Min 3V Right Diagnosis Description: Pain in unspecified shoulder CT Lung Cancer Screening Low Dose-06519 Reviewed date:12/20/2024 04:14:40 PM Interpretation: Performing Lab: Notes/Report: [id number]&org=iSite Schedule Confirmation Reviewed date:12/21/2024 01:16:55 PM Interpretation: Performing Lab: Notes/Report: CT Lung Cancer Screening Low Dose CT Lung Cancer Screening Low Dose-36025 Reviewed date:12/21/2024 01:17:20 PM Interpretation: Performing Lab: Notes/Report: See Below For Report CT Lung Cancer Screening Low Dose Diagnosis Description: Tobacco use disorder, Mild Read See Below For Report Schedule Confirmation (Not y et reviewed by provider) Interpretation: Performing Lab: Notes/Report: CT Lung Cancer Screening Low Dose Lumbosacral Spine Comp AP/La t w/ Obl-19917 Reviewed date:08/26/2024 11:44:44 AM Interpretation: Performing Lab: Notes/Report: Hip 2-3 View Uni Right w/ Pe lvis--71851 Reviewed date:08/05/2024 01:02:45 PM Interpretation: Performing Lab: Notes/Report: [id number]=iSite Reason For Referral Reason Patient has fracture and has been seen by Dr. Borjas in past. Diagnosis 1 Impacted fracture (T 14.8XXA) Referral Organization [facility] Referring Provider First Name Sun Referring Provider Last Name Gonsales Referring Provider Speciality Nurse Leon pineda Referred Provider Piotr Borjas Referred Provider Specialty Orthopedic S urgery General Notes Bhavna Owusu 07/08 04:33:07 PM >Patient has apt on 08/04., Bhavna Owusu 08/26/2024 03:10:20 PM >Requested records.Francoise Susan 08/27/2024 09:29:51 AM >See records Referral Priority Routine Referral Appointment Date 08/23/[address] 12/21: 1 wk per Sadiq Scheduled 12/21/2024 @10:30 AM Diagnosis [address] (R 93.89) Referring Provider First Name SUN Referring Provider Last Name GONSALES Referring Provider Speciality Family Pra ctice Referred Organization [facility] Referred Provider Shaun Babcock Referred Address [address] [place] [address] [address],[place],[address] Referred Provider Specialty Pulmonary Di seases General Notes Rose Du 12/21 01:42:26 PM >Scheduled 12/21/2024 @10:30 AM Referral Priority Stat Reason Patient had abnormal CT Lung Cancer Screening and is needing follow up eval. Diagnosis [address] lung scr eening (R91.8) Referral Organization [facility] [place] [facility] Referring Provider First Name Sun Referring Provider Last Name Gonsales Referring Provider Speciality Nurse Prac miriam Referred Organization [facility] Referred Provider Shaun Babcock Referred Address [address],[address] Referred Provider Specialty Pulmonary Di seases General Notes Bhavna Owusu 12/06 04:02:59 PM >Patient has apt for 12/29/2024 with Pulm., Bhavna Owusu 12/30/2024 08:57:32 AM >See referral notes Referral Priority Routine Referral Appointment Date 12/29/2024 Medications Medication SIG (Take, Route, Frequency, Duration) Notes Start Date End Date Status Pantoprazole Sodium 40 MG Tablet Delayed Release 1 tablet 1/2 to 1 hour before morning meal Orally Once a day; Duration: 30 day(s) 12/13/2024 Active Omeprazole 20 MG Capsule Delayed Release 1 cap Oral Once a day; Duration: 30 days Active busPIRone HCl 10 MG Tablet 1/2 - 1 table t Orally Twice a day; Duration: 30 days 12/13/2024 03/13/2025 Active Albuterol Sulfate HFA 108 (90 Base) MCG/ACT Aerosol Solution 2 puffs Inhalation four times a day prn; Duration: 30 days 05/15/2023 Active traMADol HCl 50 mg Tablet TAKE ONE TABLE T BY MOUTH EVERY 4 HOURS NEEDED FOR SEVERE PAIN FOR 30 DAYS; Duration: 30 days 12/30/2024 Active Sertraline HCl 50 mg Tablet TAKE ONE TAB LET BY MOUTH EVERY DAY; Duration: 90 Active HYDROcodone-Acetaminophen 5-325 MG Tablet Oral; Duration: 3 Days Ac tive Famotidine 40 MG Tablet 1 tablet Orally Once a day in evening; Duration: 30 days 12/13/2024 Active Cyclobenzaprine HCl 10 MG Tablet 1 tab Oral three times a day prn muscle spasms; Duration: 30 days Active CeleBREX 200 MG Capsule 1 cap Orally Onc e a day pc; replaces ibuprofen; Duration: 30 days 10/14/2024 02/11/2025 Active Olmesartan Medoxomil 20 MG Tablet one tablet Orally twice a day for blood pressure; Duration: 30 days Active Immunizations Vaccine Route Administration Date Status Comme nts COVID-19 Vaccine (Moderna) Dose #2 Unknown 05/04/2021 Administered COVID-19 Vaccine (Moderna) Dose #2 Unknown 12/28/2021 Administered Fluarix Quadrivalent Unknown 04/21/2023 Administered Flucelvax Quadrivalent Pres Free Unknown 08/05/2019 Administered Flucelvax Quadrivalent Pres Free IM Intramuscular 04/16/2022 Administered [facility] [phone] pt tolerated well/instructed to wait 20 min Flulaval, Trivalent, Syringe, 0.5mL, PF Unknown 04/12/2024 Administered Social History Tobacco Use: Social History Observation Description Date Details (start date - stop date) Former Smoker NA - NA Social History Depression Screening Social Info Question Answer Notes depression screening findings Findings Negative (0 -4) PHQ-9 Little interest or p arpit in doing things Not at all Feeling down, depressed, or hopeless Not at all Trouble falling or staying asleep, or sleeping t oo much Not at all Feeling tired or having little energy Not at all Poor appetite or overeating Not at all Feeling bad about yourself, or that you are a failure, or have let yourself or your family down Not at all Trouble concentrating on thi ngs, such as reading the newspaper or watching television Not at all Moving or speaking so slowly that other people could have noticed. Or the opposite ? being so fidgety or restless that you have been moving around a lot more than usual Not at all Thoughts that you would be b rosaline off , or of hurting yourself in some way Not at all Total Score 0 Drugs/Alcohol: Social Info Question Answer Notes Alcohol Screen (Audit-C) Did you have a drink containing alcohol in the past year? Yes How often did you have a drink containing alcohol in the past year? 2 to 3 times a week (3 points) How many drinks did you have on a typical day when you were drinking in the past year? 1 or 2 drinks (0 point) How often did you have 6 or more drinks on one occasion in the past year? Less than monthly (1 point) Points 4 Interpretation Positive Drugs Have you used drugs other than those for medical reasons in the past 12 months? No Comprehensive Health Assessm ent Social Info Question Answer Notes *Social Determinants of Health Has lack of transportation kept you from medical appointments, meetings, work or from getting things needed for daily living? No Recently, have you worried t hat your food would run out before you got money to buy more? No Do you feel physically and emotionally safe wher e you currently live? Yes Are you worried about losing your housing? No Tobacco Use: Social Info Question Answer Notes Tobacco Control (Standard) Tobacco use: Former smoker Additional Findings: Tobacco user e-cigarette Additional Details Category Social Info Options Details Drugs/Alcohol: Do you smoke marijuana? De nies Do you drink alcohol? Yes Section Notes: Depression screen complete 04/04/2022 04/04/2022 Depression screen complete score 0 Depression screen complete score 0 Depression screen complete score 0 Depression screen complete Depression screen complete Depression screen complete 04/04/2022 Depression screen complete score 0 Depression screen complete score 0 Problems Problem Type SNOMED Code ICD Code Onset Dates Problem Status W/U Status Risk Notes Problem Weakness (47199546) Weakness (R53.1) Active con firmed Problem Fatigue (86212208) Other fatigue (R53.83) Active confirmed Problem Bronchitis (71755869) Bronchitis (J40) Active confirmed Problem Anxiety (17407315) Anxiety (F41.9) Active confi rmed Problem Neck pain (14879117) Neck pain (M54.2) Active confirmed Problem Screening for colon cancer (711418194) Screening for colon cancer (Z12.11) Active confirmed Problem Radiology result abnormal (207004170) Abnormal chest CT (R93.89) Active confirmed Problem Exacerbation of moderate persistent asthma (disorder) (814566097) Moderate persistent asthmatic bronchitis with acute exacerbation (J45.41) Active confirmed Problem Laryngitis (19277056) Laryngitis (J04.0) Active confirmed Problem Gouty arthritis (83618178) Gouty arthritis (M10.9) Active confirmed Problem Breathing painful (86064264) Rib pain on left side (R07.81) Active confirmed Problem Weight loss (157434876) Weight loss (R63.4) Active confirmed Problem Depression screening (381067969) Depression screen (Z13.31) Active confirmed Problem Pain in right foot (354752213174043) Right foot pain (M79.671) Active confirmed Problem Idiopathic gout (82050291) Acute idiopathic gout of right foot (M10.071) Active confirmed Problem Shoulder joint pain (019594947) Acute pain of right shoulder (M25.511) Active confirmed Problem Leukocytosis (519989877) Leukocytosis, unspecified type (D72.829) Active confirmed Problem Lipid screening (650924275) Lipid screening (Z13.220) Active confirmed Problem Gastroesophageal reflux disease (998911001) GERD (gastroesophageal reflux disease) (K21.9) Active confirmed Problem Fall () Fall, initial encounter (W19.XXXA) Active confirmed Problem Thyroid disorder screening (561949440) Thyroid disorder screen (Z13.29) Active confirmed Problem Cigar smoker (65704903) Cigar smoker (F17.290) Active confirmed Problem Exposure to COVID-19 (175629978) Exposure to COVID-19 virus (Z20.822) Active confirmed Problem Primary hypertension (05483815) Primary hypertension (I10) Active confirmed Problem Acute cough (219637593688019379 ) Acute cough (R05.1) Active confirmed Problem Cough (92813461) Cough (R05.9) Active confirmed Problem 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) (3573709650) 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 confirmed Problem Primary osteoarthritis (757838921) Primary osteoarthritis involving multiple joints (M15.9) Active confirmed Vital Signs Heart Rate 92 /min 01/06/2025 Temperature 97.7 degrees Fahrenheit 01/06/2025 Respiratory Rate 18 /min 01/06/2025 Height-cm 175.26 cm 01/06/2025 Oximetry 97 % 01/06/2025 Blood pressure diastolic 62 mm Hg 01/06/2025 Weight-kg 57.1 kg 01/06/2025 Height 69 in 01/06/2025 Blood pressure systolic 113 mm Hg 01/06/2025 Weight 125.88 lbs 01/06/2025 BMI 18.59 kg/m2 01/06/2025 Encounters Encounter Location Date Provider Diagnosis [facility] [address] [address] 03/09/2024 Sun Gonsales Cigar smoker F17.290 ; Bronchitis J40 ; Cough R05.9 ; COVID U07.1 and Lumbar pain M54.50 [facility] [address] [address] 03/11/2024 [facility] Cigar smoker F17.290 ; Bronchitis J40 ; Cough R05.9 ; Wheezes R06.2 ; COVID U07.1 and Rash R21 [facility] [address] [address] 07/30/2024 [facility] Encounter for Medica re annual wellness exam Z00.00 ; Primary hypertension I10 ; Lumbar pain M54.50 ; Hip pain M25.559 and Fall (on) (from) other stairs and steps, initial encounter W10.8XXA [facility] [address] [address] 08/13/2024 [facility] Hospital discharge follow-up Z09 and Hip pain M25.559 [facility] [address] [address] 11/16/2024 [facility] Colon cancer screeni ng Z12.11 ; Shoulder pain M25.519 ; Neck pain M54.2 ; Primary hypertension I10 ; Prostate cancer screening Z12.5 ; Thyroid disorder screen Z13.29 ; Primary osteoarthritis involving multiple joints M15.9 ; Muscle spasm M62.838 and GERD (gastroesophageal reflux disease) K21.9 [facility] [address] [address] 12/13/2024 [facility] Depression screen Z13.31 ; Cigar smoker F17.290 ; Hip pain M25.559 ; Weight loss R63.4 ; Sore throat J02.9 ; GERD (gastroesophageal reflux disease) K21.9 ; Anxiety F41.9 and Tobacco abuse Z72.0 [facility] [address] [place] [address] 12/29/2024 Shaun Babcock Abnormal chest CT R93.89 ; Shortness of breath R06.02 and History of cigar smoking Z87.891 [facility] [address] [place] [address] 01/06/2025 Shaun Babcock Abnormal chest CT R93.89 ; Shortness of breath R06.02 and History of cigar smoking Z87.891 [facility] [address] [place] [address] 02/09/2024 [facility] [address] [place] [address] 02/26/[address] [facility] [address] [place] [address] 03/04/2024 [facility] [address] [place] [address] 08/02/2024 [facility] Impacted fracture T14.8XXA and Right hip pain M25.551 [facility] [address] [place] [address] 10/14/2024 [facility] [address] [place] [address] 10/28/2024 [facility] [address] [place] [address] 12/13/2024 [facility] Tobacco abuse Z72.0 [facility] [address] [place] [address] 12/20/2024 [facility] Abnormal CT lung screening R91.8 [facility] [address] [place] [address] [place] [address] 12/29/2024 Shaun Babcock Assessments Encounter Date Diagnosis (ICD Code) Assessment Notes Treatment Notes Treatment Clinical Notes Section Notes 03/09/2024 Bronchitis (ICD-10 - J40) z effie; medrol dose pack 03/09/2024 Cigar smoker (ICD-10 - F17.290) 03/11/2024 Bronchitis (ICD-10 - J40) cephalexin depomedrol/decad wilton im 03/11/2024 Cigar smoker (ICD-10 - F17.290) 07/30/2024 Encounter for Medicare annual wellness exam (ICD-10 - Z00.00) Return in one year for your annual wellness visit. see eval 08/02/2024 Right hip pain (ICD-10 - M25.551) 08/02/2024 Impacted fracture (ICD-10 - T14.8XXA) ortho 08/13/2024 Hip pain (ICD-10 - M25.559) dr borjas as planned 08/13/2024 Hospital discharge follow-up (ICD-10 - Z09) 07/30/2024 Primary hypertension (ICD-10 - I10) olmesartan 20 mg bid 11/16/2024 Shoulder pain (ICD-10 - M25.519) toradol 60 mg im tramadol shoulder x ray follow up dr borjas 11/16/2024 Colon cancer screening (ICD-10 - Z12.11) cologuard 12/13/2024 Depression screen (ICD-10 - Z13.31) 12/13/2024 Cigar smoker (ICD-10 - F17.290) ct screen 12/13/2024 Tobacco abuse (ICD-10 - Z72.0) 12/20/[address] lung screening (ICD-10 - R91.8) 12/29/2024 Shortness of breath (ICD-10 - R06.02) Continue Albuterol HFA as needed. 12/29/[address] (ICD-10 - R93.89) Patient has a 14 mm spiculated nodule versus area of atelectasis in the right upper lobe. It would be reasonable to obtain Nodify blood test first before proceeding with any biopsy. 01/06/[address] (ICD-10 - R93.89) Patient has a 14 mm spiculated nodule versus area of atelectasis in the right upper lobe. I really suspected to be unlikely a malignant process however the Nodify lung test was indeterminate. He has elected to proceed with a trial of antibiotics with repeat CT. Start Doxycycline. 12/29/2024 History of cigar smoking (ICD-10 - Z87.891) Patient smoked cigars since the age of 9. He smoked for 60 years. He has been abstinent for 4 weeks. 01/06/2025 Shortness of breath (ICD-10 - R06.02) Continue Albuterol HFA as needed. 12/13/2024 Hip pain (ICD-10 - M25.559) tramadol 07/30/2024 Lumbar pain (ICD-10 - M54.50) x rays 11/16/2024 Neck pain (ICD-10 - M54.2) cervical spine x ray 03/11/2024 Cough (ICD-10 - R05.9) 03/09/2024 Cough (ICD-10 - R05.9) prometh dm 03/09/2024 COVID (ICD-10 - U07.1) fluids mucinex 03/11/2024 Wheezes (ICD-10 - R06.2) albuteral hfa 07/30/2024 Hip pain (ICD-10 - M25.559) toradol 60 mg im x ray pelvis and right hip 11/16/2024 Primary hypertension (ICD-10 - I10) cbc cmp lipids 12/13/2024 Weight loss (ICD-10 - R63.4) 01/06/2025 History of cigar smoking (ICD-10 - Z87.891) Patient smoked cigars since the age of 9. He smoked for 60 years. He has been abstinent for 4 weeks. 12/13/2024 Sore throat (ICD-10 - J02.9) cephalexin 07/30/2024 Fall (on) (from) other stairs and steps, initial encounter (ICD-10 - W10.8XXA) 11/16/2024 Prostate cancer screening (ICD-10 - Z12.5) psa 03/11/2024 COVID (ICD-10 - U07.1) no work till friday03/09/2024 Lumbar pain (ICD-10 - M54.50) tramadol 03/11/2024 Rash (ICD-10 - R21) stop azithromycin 12/13/2024 GERD (gastroesophageal reflux disease) (ICD-10 - K21.9) pantoprazole pepcid CancelRx Response got Denied on 2024-12-13 16:21:34 for 'Pantoprazole Sodium 40 MG Tablet Delayed Release'Pharmacy Notes: NO PHARMAACY COMMENT 11/16/2024 Thyroid disorder screen (ICD-10 - Z13.29) tsh 12/13/2024 Anxiety (ICD-10 - F41.9) buspar 11/16/2024 Primary osteoarthritis involving multiple joints (ICD-10 - M15.9) depomedrol/decad wilton im 11/16/2024 Muscle spasm (ICD-10 - M62.838) flexeril 12/13/2024 Tobacco abuse (ICD-10 - Z72.0) 11/16/2024 GERD (gastroesophageal reflux disease) (ICD-10 - K21.9) omeprazole 03/09/2024 Other Questions asked and answered; discharged to home. 03/11/2024 Other Questions asked and answered; discharged to home. 07/30/2024 Other Questions asked and answered; discharged to home. 08/13/2024 Other Questions asked and answered; discharged to home. 11/16/2024 Other Questions asked and answered; discharged to home. Venipuncture: Performed by:Hayden TYSON Attempts: x1 Location: LAC Needle gauge: 21g Patient tolerated well. 12/13/2024 Other Questions asked and answered; discharged to home. 12/29/2024 Other Anika Ferraro am scribing for, and in the presence of Dr. Shaun Babcock. I, Dr. Shaun Babcock, personally performed the services described in this documentation, as scribed by Anika Ruiz in my presence, and it is both accurate and complete. 01/06/2025 Other Anika Ferraro am scribing for, and in the presence of Dr. Shaun Babcock. Dr. Shaun Ferraro, personally performed the services described in this documentation, as scribed by Anika Ruiz in my presence, and it is both accurate and complete. Plan Of Treatment Pending Test Test Name Order Date CT Chest w/o Contrast diagnostic-[id number] 01/06/2025 Shoulder Min 3V Right-[id number] 11/16/2024 Cologuard 11/16/2024 CT Lung Cancer Screening Low Dose-[id number] 05/15/2023 Schedule Confirmation 12/14/2024 Next Appt Details Provider Name:Sun Gonsales, 01/20/2025 09:20:00 AM, [address] , [facility], [place], [address], Provider Name:Shaun Babcock, 02/01/2025 01:20:00 PM, [address] [place] [address] [address], [place], [address], Insurance Providers Payer Name Payer Address Payer Phone Subscriber Number Group Number Insured Name Patient Relationship to Insured Coverage Start Date Coverage End Date [employer] [place] [employer] Commercial [address] [place] [phone] [id number] [id number] NATALIIA CLARKE Self - patient is the insured [place] Medicare [address] [place] [phone] [id number] NATALIIA CLARKE Self - patient is the insured Medications Administered Medication Instructions Date of Administration Dosage Notes DEPO-Medrol 11/05/2021 40 mg ndc 87698-340 3-1 pt tolerated well/instructed to wait 20 min DEPO-Medrol 04/04/2022 40 mg NDC: [address]-51 Patient tolerated well, advised to wait 20 min at clinic DEPO-Medrol 07/18/2022 40 mg NDC: [address]-67 Patient tolerated well, advised to wait 20 min at [facility] DEPO-Medrol 08/27/2022 40 mg ndc 80075-643 4-10 pt tolerated well/instructed to wait 20 min DEPO-Medrol 05/15/2023 40 mg ndc 57921-661 3-01 pt tolerated well/instructed to wait 20 min DEPO-Medrol 09/11/2023 40 mg ndc 56369-217 3-01 pt tolerated well/instructed to wait 20 min DEPO-Medrol 03/11/2024 40 mg ndc 32095-115 3-01 pt tolerated well/instructed to wait 20 min DEPO-Medrol 11/16/2024 40 mg ndc 19758-870 3-01 pt tolerated well/instructed to wait 20 min dexAMETHasone 11/05/2021 4 mg ndc 65039-2 39-30 pt tolerated well/instructed to wait 20 min dexAMETHasone 04/04/2022 4 mg NDC: 62420-679-52 Patient tolerated well, advised to wait 20 min at clinic dexAMETHasone 07/18/2022 4 mg NDC: [address]-65 PAtient tolerated well, advised to wait 20 min at clinic dexAMETHasone 08/27/2022 4 mg ndc 49392-6 423-00 pt tolerated well/instructed to wait 20 min dexAMETHasone 05/15/2023 4 mg ndc 98652-6 423-00 pt tolerated well/instructed to wait 20 min dexAMETHasone 09/11/2023 4 mg ndc 57399-9 423-00 pt tolerated well/instructed to wait 20 min dexAMETHasone 03/11/2024 4 mg ndc 03022-4 423-00 pt tolerated well/instructed to wait 20 min dexAMETHasone 11/16/2024 4 mg vnp69408-76 23- pt tolerated well/instructed to wait 20 min Ketorolac Tromethamine 11/05/2021 [place] [address]-11 pt tolerated well/instructed to wait 20 min Ketorolac Tromethamine 07/30/2024 [place] [address]-24 pt tolerated well/instructed to wait 20 min Ketorolac Tromethamine 11/16/2024 [place] [address]-13 pt tolerated well/instructed to wait 20 min Rocephin 07/18/2022 1 g ND: [address]-52 Patient tolerated well, advised to wait 20 min at clinic Medical (General) History Medical History History ICD Code measles mumps Arthritis blood transfusion Back Trouble High Blood Pressure asthma kidney stones Surgical History Surgery Date(Month/Year) left knee replacement 2019 nasal reconstruction/ septum right hip replacement 2024 Hospitalization History Reason Date(Month/Year) See Surgical HX right hip fracture knee surgery
[2025-01-17 13:13] LABS: Hematocrit 49.7 % (37-53); Hemoglobin 15.90 g/dL (11.27-16.99); Mean Corpuscular HGB Conc 32.0 g/dL (30-55); Mean Corpuscular Hemoglobin 28.3 pg (27-33); Mean Corpuscular Volume 88.6 fl (82-101); Nucleated Red Blood Cells % 0 %; Platelet Count 117 10^3/cmm (157-399); Red Blood Count 5.61 10^6/uL (3.85-5.65); White Blood Count 10.10 10^3/uL (3.29-11.43)
--- NOTE | 2025-01-17 13:17 | W.ED.NAVMDI ---
HPI - Nausea/Vomiting/Diarrhea General: Chief complaint: Nausea/Vomiting/Diarrhea Stated complaint: n/v Time Seen by Provider: 01/17/25 13:01 History of Present Illness: 69-year-old male presents emergency room with nausea vomiting abdominal pain and cramping. He also has a new sunburn. He was outdoors yesterday and developed sunburn. He has recently started doxycycline. Associated symtoms: Denies chest pain or dysuria Related Data Previous Rx's ?Medication ?Instructions ?Recorded hydrocodone 5 mg-acetaminophen 325 1 tab PO Q6H PRN pain #12 tabs 12/05/24 mg tablet promethazine 25 mg tablet 25 mg PO Q6H PRN nausea and 01/17/25 vomiting #10 tabs Allergies Allergy/AdvReac Type Severity Reaction Status Date / Time gabapentin Allergy Unknown Unverified 08/09/19 08:25 Review of Systems Const: Denies: fever(s) or chills Card: Denies: chest pain Resp: Denies: dyspnea GI: Denies: abdominal pain : Denies: dysuria, urinary frequency or urinary urgency Musc: Denies: neck pain or back pain Skin/Breast: Denies: rash PFSH ED PFSH: Surgical History History of total right hip arthroplasty Physical Exam Const: COMMON NORMALS: no acute distress GENERAL APPEARANCE: cooperative and comfortable ORIENTATION/CONSCIOUSNESS: Yes awake, Yes oriented to person, Yes oriented to place and Yes oriented to time HENMT: COMMON NORMALS: normocephalic, atraumatic and hearing grossly normal bilaterally HEAD & SCALP: normocephalic and atraumatic Resp: COMMON NORMALS: normal respiratory effort, No retractions, No use of accessory muscles and clear to auscultation bilaterally AUSCULTATION: clear to auscultation bilaterally Cardio: COMMON NORMALS: regular rate, regular rhythm and No murmurs present (Cardio) RATE: regular rate RHYTHM: regular rhythm GI: COMMON NORMALS: Soft to palpation and No hepatosplenomegaly present AUSCULTATION: Yes normoactive bowel sounds PALPATION: Yes Soft to palpation, No Tenderness to palpation present (GI), No Guarding due to palpation present (GI) and Yes No hepatosplenomegaly present Extremity: COMMON NORMALS: normal to inspection, capillary refill normal, no clubbing, cyanosis or edema, no calf tenderness and no pedal edema Neuro: SENSORIUM/ORIENTATION: Yes oriented to person, Yes oriented to place and Yes oriented to time Skin: COMMON NORMALS: no rashes or lesions noted GENERAL SKIN EXAM: no rashes or lesions noted Course Vital Signs: Vital signs: Vital Signs Temperature 98.1 F 01/17/25 12:46 Pulse Rate 87 01/17/25 12:46 Respiratory Rate 16 01/17/25 12:46 Blood Pressure 150/92 01/17/25 12:46 Pulse Oximetry 94 01/17/25 12:46 Oxygen Delivery Me thod Room Air 01/17/25 12:46 MDM - Nausea/Vomiting/Diarrhea Medical Decision Making Nausea vomiting Sunsense to recheck another doxycycline improved after stopping no significant lab abnormalities patient given liter fluids discharge home with promethazine patient is already stopped the doxycycline he was given to him for lung infection recommend he follow-up with his primary care doctor Lab Data 01/17/25 13:07 01/17/25 13:07 Laboratory Results WBC 10.10 10^3/uL (3.29-11.43) 01/17/25 13:07 RBC 5.61 10^6/uL (3.85-5.65) 01/17/25 13:07 Hgb 15.90 g/dL (11.27-16.99) 01/17/25 13:07 Hct 49.7 % (37-53) 01/17/25 13:07 MCV 88.6 fl (82-101) 01/17/25 13:07 MCH 28.3 pg (27-33) 01/17/25 13:07 MCHC 32.0 g/dL (30-55) 01/17/25 13:07 RDW 22.4 % (12.1-15.1) H 01/17/25 13:07 Plt Count 117 10^3/cmm (157-399) L 01/17/25 13:07 MPV 9.1 fL (7.4-10.4) 01/17/25 13:07 Neut % (Auto) 72.8 % 01/17/25 13:07 Lymph % (Auto) 17.0 % 01/17/25 13:07 [place] % (Auto) 8.6 % 01/17/25 13:07 Eos % (Auto) 0.4 % 01/17/25 13:07 Baso % (Auto) 0.8 % 01/17/25 13:07 Neut # (Auto) 7.35 10^3/uL (1.8-7.7) 01/17/25 13:07 Lymph # (Auto) 1.7 10^3/uL (0.8-4.8) 01/17/25 13:07 [place] # (Auto) 0.9 10^3/uL (0.2-0.9) 01/17/25 13:07 Eos # (Auto) 0.0 10^3/uL (0.0-0.8) 01/17/25 13:07 Baso # (Auto) 0.1 10^3/uL (0.0-0.1) 01/17/25 13:07 Nucleated RBC % (auto) 0 % 01/17/25 13:07 Nucleated RBCs # 0.0 /100WBC 01/17/25 13:07 Sodium 137 mmol/L (136-145) 01/17/25 13:07 Potassium 4.2 mmol/L (3.5-5.1) 01/17/25 13:07 Chloride 99 mmol/L (98-107) 01/17/25 13:07 Carbon Dioxide 25 mmol/L (22-29) 01/17/25 13:07 Anion Gap 17.2 (5-19) 01/17/25 13:07 BUN 9 mg/dL (8-23) 01/17/25 13:07 Creatinine 0.8 mg/dL (0.7-1.2) 01/17/25 13:07 GFR Calculation 96.4 mL/min (90-130) 01/17/25 13:07 Glucose 113 mg/dL (65-115) 01/17/25 13:07 Calculated Osmolality 283 mOsm/kg (285-295) L 01/17/25 13:07 Calcium 8.9 mg/dL (8.5-10.5) 01/17/25 13:07 Total Bilirubin 0.9 mg/dL (0.15-1.2) 01/17/25 13:07 AST 20 U/L (0-40) 01/17/25 13:07 ALT 11 U/L (0-41) 01/17/25 13:07 Alkaline Phosphatase 161 U/L (40-130) H 01/17/25 13:07 Total Protein 7.1 g/dL (6.6-8.7) 01/17/25 13:07 Albumin 3.6 g/dL (3.5-5.2) 01/17/25 13:07 Globulin 3.5 g/dL (1.3-4.6) 01/17/25 13:07 Amorphous Sediment Not Reportable 01/17/25 13:57 No radiology studies performed this visit Discharge Plan Discharge Patient Disposition: Home Clinical Impression: Drug-induced nausea and vomiting, Medication side effect, 1st degree sunburn Condition: Stable Prescriptions: New promethazine 25 mg tablet 25 mg PO Q6H PRN (Reason: nausea and vomiting) Qty: 10 0RF No Action hydrocodone-acetaminophen 5-325 mg tablet 1 tab PO Q6H PRN (Reason: pain) Qty: 12 0RF Discharge Orders: Discharge ED (Routine); Ordered 01/17/25 Ordered By: Ritchie Beckett Referrals: Sun Gonsales APN [Primary Care Provider, Nurse Practitioner] Patient Instructions: Opioid Safety, Pain Management, Patient Portal & Hiren Instructions Activity Restrictions/Additional Instructions: [facility]. It is very important that you follow up as instructed or that you return to the Emergency Department should you have concerns or if your condition changes or worsens in any way. You were seen in the emergency room with a recent sunburn and nausea vomiting. Based on your history this appears to have been caused in large part by has not been taking doxycycline which will make you very sun sensitive. Can also upset the stomach cause GI discomfort. Your laboratory tests were not significantly abnormal. Will discharge you home. You were given promethazine to use as needed for stomach upset. Follow-up with your primary care doctor. Print Language: [place] Coding Level of Care Code ED Electric Stop Installer for Dc Daley
[2025-01-17 13:30] LABS: Alanine Aminotransferase 11 U/L (0-41); Albumin Level 3.6 g/dL (3.5-5.2); Alkaline Phosphatase 161 U/L (40-130); Aspartate Amino Transferase 20 U/L (0-40); Blood Urea Nitrogen 9 mg/dL (8-23); Calcium 8.9 mg/dL (8.5-10.5); Carbon Dioxide 25 mmol/L (22-29); Chloride 99 mmol/L (98-107); Creatinine Clr Calc Pharmacy 83.0552; Globulin 3.5 g/dL (1.3-4.6); Glucose 113 mg/dL (65-115); Osmolality Calculated 283 mOsm/kg (285-295); Sodium 137 mmol/L (136-145); Total Protein 7.1 g/dL (6.6-8.7)
[2025-01-17 13:34] LABS: Anion Gap 17.2 (5-19); Potassium 4.2 mmol/L (3.5-5.1)
[2025-01-17 14:17] LABS: Glucose Urine UA Negative (Normal); Nitrate Urine Negative (Negative); Specific Gravity, Urine 1.022 (1.005-1.030)
[2025-01-17 14:19] VITALS: BP 150/73; PULSE 80; O2SAT 98
[2025-01-17 14:22] LABS: Add Urine Microscopic? YES
== END 2025-01-17 15:20 | disposition home or self-care (01) ==
PROVIDERS: Emergency Provider Family Medicine; PCP Nurse Practitioner Family
DX: R11.2 Nausea with vomiting, unspecified (principal); T36.4X5A Adverse effect of tetracyclines, initial encounter; X58.XXXA Exposure to other specified factors, initial encounter; L55.0 Sunburn of first degree
CPT/HCPCS: 80053; 81001; 85025; 99283; J7030

== ENCOUNTER 2025-01-18 02:12 | Emergency (ER) | payer OTHER, SELFPAY ==
[2025-01-18] VITALS (12 sets, daily range): BP systolic 108–158; BP diastolic 80–125; PULSE 107–145; RESP 14–18; TEMP 36.7; O2SAT 86–97; BMI 19.2
--- OUTSIDE RECORDS SUMMARY | 2025-01-18 02:21 | XMS_ITS | Patient Health Record ---
Author Organization [facility] Address [address] [place] [address] Care Team Providers Care Finance Director Name Role Phone Dru [facility] Primary Care Provider Shaun Babcock Unavailable [phone] GONSALES, [facility] Unavailable Unavailable Allergies Allergen (clinical drug ingredient) Drug/Non Drug Allergy documented on EMR Reaction Allergy Type Onset Date Status azithromycin Azithromycin rash Drug Allergy 03/11/2024 Active Results Component Value Reference Range Flag Notes Lumbosacral Spine Comp AP/La t w/ Obl-00201 Reviewed date:08/26/2024 11:44:44 AM Interpretation: Performing Lab: Notes/Report: Hip 2-3 View Uni Right w/ Pe lvis--49789 Reviewed date:08/05/2024 01:02:45 PM Interpretation: Performing Lab: Notes/Report: act=[id number]&org=iSite Cervical Spine AP/Lat 2-3 Vi [id number] Reviewed date:11/25/2024 07:16:03 AM Interpretation: Performing Lab: Notes/Report: See Below For Report Cervical Spine AP/Lat 2-3 Views Diagnosis Description: Cervicalgia Read See Below For Report IH Shoulder Min 3V Right - 7 3030 Reviewed date:11/25/2024 07:15:27 AM Interpretation: Performing Lab: Notes/Report: See Below For Report Shoulder Min 3V Right Diagnosis Description: Pain in unspecified shoulder Hip 2-3 View Uni Right w/ Pe lvis--45322 Reviewed date:08/05/2024 01:02:14 PM Interpretation: Performing Lab: Notes/Report: See Below For Report Hip 2-3 View Uni Right w/ Pelvis Read See Below For Report IH Lumbosacral Spine Comp AP /Lat w/ Obl - 67225 Reviewed date:08/05/2024 01:03:18 PM Interpretation: Performing Lab: Notes/Report: See Below For Report Lumbosacral Spine Comp AP/Lat w/ Obl IH Lumbosacral Spine Comp AP /Lat w/ Obl - 10379 Reviewed date:08/05/2024 01:02:25 PM Interpretation: Performing Lab: Notes/Report: wnt=[id number]&org=iSite CT Lung Cancer Screening Low Dose-63894 Reviewed date:12/20/2024 04:14:40 PM Interpretation: Performing Lab: Notes/Report: rgz=[id number]&org=iSite Schedule Confirmation (Not y et reviewed by provider) Interpretation: Performing Lab: Notes/Report: CT Lung Cancer Screening Low Dose CT Lung Cancer Screening Low Dose-33548 Reviewed date:12/21/2024 01:17:20 PM Interpretation: Performing Lab: Notes/Report: See Below For Report CT Lung Cancer Screening Low Dose Diagnosis Description: Tobacco use disorder, Mild Read See Below For Report Schedule Confirmation Reviewed date:12/21/2024 01:16:55 PM Interpretation: Performing Lab: Notes/Report: CT Lung Cancer Screening Low Dose IH Shoulder Min 3V Right - 7 3030 Reviewed date:11/25/2024 07:16:32 AM Interpretation: Performing Lab: Notes/Report: mxz=[id number]&org=iSite CBC w\ Auto Diff 55894 Reviewed date:11/18/2024 09:15:14 AM Interpretation: Performing Lab: [...] 40.0-70.0 % Lymph Auto% 22.0 22.0-44.0 % Ferry Auto% 7.1 3.0-7.0 % HI Eos Auto% 6.2 2.0-4.0 % HI Baso Auto% 2.1 0.0-1.0 % HI Imm Gran% .2 .0-.4 % Neutro Abs 5.24 .80-7.70 Absolute Neutrophil Count 5240 NA Lymph Abs 1.85 .10-4.10 Ferry Abs .60 .20-1.00 Eos Abs .52 .00-.40 HI Baso Abs .18 .00-.20 Imm Gran Abs .02 .00-.10 NRBC# .00 .00-.20 NRBC% .00 .00-.20 /100 intact WBC's Comprehensive Metabolic Pane l (CMP) 79944 Reviewed date:11/18/2024 09:15:37 AM Interpretation: Performing Lab: Notes/Report: Diagnosis Description: Essential (primary) hypertension Glucose Serum 70 71-110 MG/DL LOW Testing p erformed at [facility], [address] [place] [address] [place] [address]. CLIA ID#: [id number] BUN 13 7-21 MG/DL Creat .77 .57-1.17 MG/DL G-ljpqcx-p-benzoquinon e imine (NAPQI) is a metabolite of [...] MOSM/KG Lipid Panel Reflex DLDL 8006 1, 15040 Reviewed date:11/18/2024 09:03:08 AM Interpretation: Performing Lab: [...] See DLDL result. Thyroid Stimulating Hormone (TSH) 46236 Reviewed date:11/18/2024 09:02:46 AM Interpretation: Performing Lab: [...] prostate cancer. Cervical Spine AP/Lat 2-3 Vi ews-[id number] Reviewed date:11/25/2024 07:19:37 AM Interpretation: Performing Lab: Notes/Report: skw=[id number]=iSite Reason For Referral Reason Patient has fracture and has been seen by Dr. Borjas in past. Diagnosis 1 Impacted fracture (T 14.8XXA) Referral Organization [facility] Referring Provider First Name Sun Referring Provider Last Name Gonsales Referring Provider Speciality Nurse Leon paezr Referred Provider Piotr Borjas Referred Provider Specialty Orthopedic S urgery General Notes Bhavna Owusu 07/08 04:33:07 PM >Patient has apt on 08/04., Bhavan Owusu 08/26/2024 03:10:20 PM >Requested records.Francoise Susan 08/27/2024 09:29:51 AM >See records Referral Priority Routine Referral Appointment Date 08/23/[address] 12/21: 1 wk per Sadiq Scheduled 12/21/2024 @10:30 AM Diagnosis [address] (R 93.89) Referring Provider First Name SUN Referring Provider Last Name GONSALES Referring Provider Speciality Family Pra ctice Referred Organization [facility] Referred Provider Shaun Babcock Referred Address [address] [place] [address] [address],[place], [place],[address], Referred Provider Specialty Pulmonary Di seases General Notes Rose Du 12/21 01:42:26 PM >Scheduled 12/21/2024 @10:30 AM Referral Priority Stat Reason Patient had abnormal CT Lung Cancer Screening and is needing follow up eval. Diagnosis [address] lung scr eening (R91.8) Referral Organization [facility] [place] [facility] Referring Provider First Name Sun Referring Provider Last Name Gonsales Referring Provider Speciality Nurse Prac miriam Referred Organization [facility] Referred Provider Shaun Babcock Referred Address [address] [facility] [address],[place],[address],[place] Referred Provider Specialty Pulmonary Di seases General [...] Quadrivalent Pres Free IM Intramuscular 04/16/2022 Administered [facility] 54076-014-8 3 pt tolerated well/instructed to wait 20 [...] Do you drink alcohol? Yes Section Notes: 04/04/2022 Depression screen complete score 0 Depression screen complete score 0 Depression screen complete Depression screen complete 04/04/2022 Depression screen complete score 0 Depression screen complete score 0 04/04/2022 Depression screen complete Depression screen complete score 0 Depression screen complete Problems Problem Type SNOMED Code ICD Code Onset Dates Problem Status W/U Status Risk Notes Problem Weakness (94308228) Weakness (R53.1) Active con firmed Problem Fatigue (21057443) Other fatigue (R53.83) Active confirmed Problem Bronchitis (70652331) Bronchitis (J40) Active confirmed Problem Anxiety (20526704) Anxiety (F41.9) Active confi rmed Problem Neck pain (67652563) Neck pain (M54.2) Active confirmed Problem Screening for colon cancer (820358550) Screening for colon cancer (Z12.11) Active confirmed Problem Radiology result abnormal (734610888) Abnormal chest CT (R93.89) Active confirmed Problem Exacerbation of moderate persistent asthma (disorder) (171176073) Moderate persistent asthmatic bronchitis with acute exacerbation (J45.41) Active confirmed Problem Laryngitis (59144056) Laryngitis (J04.0) Active confirmed Problem Gouty arthritis (09960529) Gouty arthritis (M10.9) Active confirmed Problem Breathing painful (35821105) Rib pain on left side (R07.81) Active confirmed Problem Weight loss (980517933) Weight loss (R63.4) Active confirmed Problem Depression screening (913535095) Depression screen (Z13.31) Active confirmed Problem Pain in right foot (424845315654703) Right foot pain (M79.671) Active confirmed Problem Idiopathic gout (67349182) Acute idiopathic gout of right foot (M10.071) Active confirmed Problem Shoulder joint pain (711525899) Acute pain of right shoulder (M25.511) Active confirmed Problem Leukocytosis (102237731) Leukocytosis, unspecified type (D72.829) Active confirmed Problem Lipid screening (476462866) Lipid screening (Z13.220) Active confirmed Problem Gastroesophageal reflux disease (417727561) GERD (gastroesophageal reflux disease) (K21.9) Active confirmed Problem Fall () Fall, initial encounter (W19.XXXA) Active confirmed Problem Thyroid disorder screening (497837636) Thyroid disorder screen (Z13.29) Active confirmed Problem Cigar smoker (96553546) Cigar smoker (F17.290) Active confirmed Problem Exposure to COVID-19 (825410929) Exposure to COVID-19 virus (Z20.822) Active confirmed Problem Primary hypertension (11754811) Primary hypertension (I10) Active confirmed Problem Acute cough (616922238370751049 ) Acute cough (R05.1) Active confirmed Problem Cough (69203593) Cough (R05.9) Active confirmed Problem 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) (6587012537) 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 confirmed Problem Primary osteoarthritis (924165784) Primary osteoarthritis involving multiple joints (M15.9) Active [...] 01/06/2025 Encounters Encounter Location Date Provider Diagnosis [facility] [address] [address] 02/09/2024 [facility] [address] [place] [address] 02/26/2024 Sun Gonsales [address] [place] [address] 03/04/2024 [facility] [address] [place] [address] 08/02/2024 [facility] Impacted fracture T14.8XXA and Right hip pain M25.551 [facility] [address] [place] [address] 10/14/2024 Sun Gonsales [facility] [address] [place] [address] 10/28/2024 [facility] Gonsales [facility] [address] [facility] [address] [place] [address] 12/13/2024 [facility] Tobacco abuse Z72.0 [facility] [address] [place] [address] 12/20/2024 [facility] Abnormal CT lung screening R91.8 [facility] [address] [place] [address] [address] [place] [address] 12/29/2024 Shaun Babcock [facility] [address] [facility] [address] [place] [address] 03/09/2024 [facility] Cigar smoker F17.290 ; Bronchitis J40 ; Cough R05.9 ; COVID U07.1 and Lumbar pain M54.50 [facility] [address] [place] [address] 11/16/2024 [facility] Colon cancer screeni ng Z12.11 ; Shoulder pain M25.519 ; Neck pain M54.2 ; Primary hypertension I10 ; Prostate cancer screening Z12.5 ; Thyroid disorder screen Z13.29 ; Primary osteoarthritis involving multiple joints M15.9 ; Muscle spasm M62.838 and GERD (gastroesophageal reflux disease) K21.9 [facility] [address] [place] [address] 12/13/2024 [facility] Depression screen Z13.31 ; Cigar smoker F17.290 ; Hip pain M25.559 ; Weight loss R63.4 ; Sore throat J02.9 ; GERD (gastroesophageal reflux disease) K21.9 ; Anxiety F41.9 and Tobacco abuse Z72.0 [facility] [address] [place] [address] 01/06/2025 Shaun Babcock Abnormal chest CT R93.89 ; Shortness of breath R06.02 and History of cigar smoking Z87.891 [facility] [address] [place] [address] 12/29/2024 Shaun Babcock Abnormal chest CT R93.89 ; Shortness of breath R06.02 and History of cigar smoking Z87.891 [facility] [address] [address] 07/30/2024 [facility] Encounter for [employer] annual wellness exam Z00.00 ; Primary hypertension I10 ; Lumbar pain M54.50 ; Hip pain M25.559 and Fall (on) (from) other stairs and steps, initial encounter W10.8XXA [facility] [address] [address] 03/11/2024 [facility] Cigar smoker F17.290 ; Bronchitis J40 ; Cough R05.9 ; Wheezes R06.2 ; COVID U07.1 and Rash R21 [facility] [address] [address] 08/13/2024 [facility] Hospital discharge follow-up Z09 and Hip pain M25.559 Assessments Encounter Date Diagnosis (ICD Code) Assessment [...] cancer screening (ICD-10 - Z12.11) cologuard 12/13/2024 Cigar smoker (ICD-10 - F17.290) ct [...] test first before proceeding with any biopsy. 12/13/2024 Depression screen (ICD-10 - Z13.31) 01/06/[address] (ICD-10 - R93.89) Patient has a 14 mm spiculated nodule versus area of atelectasis in the right upper lobe. I really suspected to be unlikely a malignant process however the Nodify lung test was indeterminate. He has elected to proceed with a trial of antibiotics with repeat CT. Start Doxycycline. 12/13/2024 Hip pain (ICD-10 - M25.559) tramadol 12/29/2024 History of cigar smoking (ICD-10 - Z87.891) Patient smoked cigars since the age of 9. He smoked for 60 years. He has been abstinent for 4 weeks. 01/06/2025 Shortness of breath (ICD-10 - R06.02) Continue Albuterol HFA as needed. 07/30/2024 Lumbar pain (ICD-10 - M54.50) x rays 11/16/2024 Neck pain (ICD-10 - M54.2) cervical spine x ray 03/11/2024 Cough (ICD-10 - R05.9) 03/09/2024 Cough (ICD-10 - R05.9) prometh dm 03/09/2024 COVID (ICD-10 - U07.1) fluids mucinex 07/30/2024 Hip pain (ICD-10 - M25.559) toradol 60 mg im x ray pelvis and right hip 03/11/2024 Wheezes (ICD-10 - R06.2) albuteral hfa 11/16/2024 Primary hypertension (ICD-10 - I10) cbc [...] Prostate cancer screening (ICD-10 - Z12.5) psa 03/09/2024 Lumbar pain (ICD-10 - M54.50) tramadol 03/11/2024 COVID (ICD-10 - U07.1) no work till friday03/11/2024 Rash (ICD-10 - R21) stop azithromycin 11/16/2024 Thyroid disorder screen (ICD-10 - Z13.29) tsh 12/13/2024 GERD (gastroesophageal reflux disease) (ICD-10 - K21.9) pantoprazole pepcid CancelRx Response got Denied on 2024-12-13 16:21:34 for 'Pantoprazole Sodium 40 MG Tablet Delayed Release'Pharmacy Notes: NO PHARMAACY COMMENT 12/13/2024 Anxiety (ICD-10 - F41.9) buspar 11/16/2024 [...] and in the presence of Dr. Shaun Bbacock. Dr. Shaun Ferraro, personally performed the services described in this documentation, as scribed by Anika Ruiz in my presence, and it is both accurate and complete. Plan Of Treatment Pending Test Test Name Order Date CT Chest w/o Contrast diagnostic-87372 0 01/06/2025 Shoulder Min 3V Right-25260 11/16/2024 Cologuard 11/16/2024 CT Lung Cancer Screening Low Dose-44295 05/15/2023 Schedule Confirmation 12/14/2024 Next Appt Details Provider Name:Sun Gonsales, 01/20/2025 09:20:00 AM, [address] [facility], [place], [address], Provider Name:Shaun Babcock, 02/01/2025 01:20:00 PM, [address] [place] [address] [address], [place], [address], Insurance Providers Payer Name Payer Address Payer Phone Subscriber Number Group Number Insured Name Patient Relationship to Insured Coverage Start Date Coverage End Date [employer] [place] [employer] [address] [place] [phone] [id number] PSPREM NATALIIA CLARKE Self - patient is the insured [place] [address] [place] [phone] [id number] NATALIIA CLARKE Self - patient is the insured Medications Administered Medication Instructions Date of Administration Dosage Notes DEPO-Medrol 11/05/2021 40 mg ndc 39882-172 3-1 pt tolerated well/instructed to wait 20 min DEPO-Medrol 04/04/2022 40 mg NDC: [address]-82 Patient tolerated well, advised to wait 20 min at clinic DEPO-Medrol 07/18/2022 40 mg NDC: [address]-27 Patient tolerated well, advised to wait 20 min at [facility] DEPO-Medrol 08/27/2022 40 mg ndc 37033-572 4-10 pt tolerated well/instructed to wait 20 min DEPO-Medrol 05/15/2023 40 mg ndc 52624-626 3-01 pt tolerated well/instructed to wait 20 min DEPO-Medrol 09/11/2023 40 mg ndc 48577-898 3-01 pt tolerated well/instructed to wait 20 min DEPO-Medrol 03/11/2024 40 mg ndc 34499-002 3-01 pt tolerated well/instructed to wait 20 min DEPO-Medrol 11/16/2024 40 mg ndc 14077-884 3-01 pt tolerated well/instructed to wait 20 min dexAMETHasone 11/05/2021 4 mg ndc 70537-0 39-30 pt tolerated well/instructed to wait 20 min dexAMETHasone 04/04/2022 4 mg NDC: 49686-371-28 Patient tolerated well, advised to wait 20 min at clinic dexAMETHasone 07/18/2022 4 mg NDC: [address]-24 PAtient tolerated well, advised to wait 20 min at clinic dexAMETHasone 08/27/2022 4 mg ndc 75341-9 423-00 pt tolerated well/instructed to wait 20 min dexAMETHasone 05/15/2023 4 mg ndc 39340-0 423-00 pt tolerated well/instructed to wait 20 min dexAMETHasone 09/11/2023 4 mg ndc 03201-9 423-00 pt tolerated well/instructed to wait 20 min dexAMETHasone 03/11/2024 4 mg ndc 92859-0 423-00 pt tolerated well/instructed to wait 20 min dexAMETHasone 11/16/2024 4 mg kko04433-15 23- pt tolerated well/instructed to wait 20 min Ketorolac Tromethamine 11/05/2021 [place] [address]-05 pt tolerated well/instructed to wait 20 min Ketorolac Tromethamine 07/30/2024 [place] [address]-22 pt tolerated well/instructed to wait 20 min Ketorolac Tromethamine 11/16/2024 [place] [address]-01 pt tolerated well/instructed to wait 20 min Rocephin 07/18/2022 1 g ND: [address]-38 Patient tolerated well, advised to wait 20 [...]
--- NOTE | 2025-01-18 02:24 | XRR_ITS ---
PROCEDURE INFORMATION: Exam: XR Right Hip Exam date and time: 01/18/2025 2:30 AM Age: 69 years old Clinical indication: Hip pain; Right hip; Prior surgery; Surgery date: 6+ months; Surgery type: Hip replacement; Additional info: Possible dislocation TECHNIQUE: Imaging protocol: Radiologic exam of the right hip. Views: 1 view hip with pelvis when performed. COMPARISON: CR XR hip RT 2-3V wo/w pel* [id number] 12/05/2024 4:09 PM FINDINGS: Bones/joints: Right total hip arthroplasty components with dislocation of the femoral component superiorly with respect to the acetabular component. No periprosthetic fracture is visualized. Soft tissues: Soft tissue fullness about the right hip. XR/XR hip RT 2-3V wo/w pel* [id number] IMPRESSION: Right hip dislocation.
--- NOTE | 2025-01-18 02:25 | ECG_ITS ---
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 Measurements Intervals [place] Rate: 121 P: 81 MS: 161 QRS: -10 QRSD: 101 T: 79 QT: 339 QTc: 483 Interpretive Statements SINUS TACHYCARDIA SEPTAL MYOCARDIAL INFARCTION , OF INDETERMINATE AGE [40+ ms Q WAVE IN V1/V2] Compared to ECG 06/24/2015 14:54:26 Myocardial infarct finding now present Sinus rhythm no longer present Intraventricular conduction delay no longer present T-wave abnormality no longer present Electronically Signed On 01-18-2025 15:01:25 CDT by Matthew Asencio M.D. [email or web address]
--- NOTE | 2025-01-18 02:42 | ED_ITS ---
HPI - Extremity Problem General: Chief complaint: Extremity Injury, Lower Stated complaint: Hip dislocation Time Seen by Provider: 01/18/25 02:19 History of Present Illness: 69-year-old man with a history of a hip prosthesis with multiple dislocations in the past who presents emergency room with a likely hip dislocation. When he sat down he felt his hip pop out. Upon arrival here he is quite somnolent as he received ketamine and fentanyl in the ambulance. Related Data Previous Rx's ?Medication ?Instructions ?Recorded hydrocodone 5 mg-acetaminophen 325 1 tab PO Q6H PRN pa in #12 tabs 12/05/24 mg tablet promethazine 25 mg tablet 25 mg PO Q6H PRN nausea and 01/17/25 vomiting #10 tabs Allergies Allergy/AdvReac Type Severity Reaction Status Date / Time gabapentin Allergy Unknown Unverified 08/09/19 08:25 Review of Systems General: Reports: ROS unobtainable due to medical condition PFSH ED PFSH: Surgical History History of total right hip arthroplasty Physical Exam Narrative: EXAM NARRATIVE: General: Alert, no acute distress. Skin: warm and dry Head: Normocephalic Neck: Trachea midline Eye: Extraocular movements are intact. Ears, nose, mouth and throat: Oral mucosa moist Respiratory: Respirations are non-labored Musculoskeletal: Leg foreshortened and rotated medially. Last time he had a superior dislocation appears to again Gastrointestinal: Abdomen does not appear distended Neurological: Alert and oriented, No focal neurological deficit observed. Psychiatric: Cooperative, appropriate mood & affect. Course Vital Signs: Vital signs: Vital Signs Temperature 98.1 F 01/18/25 02:15 Pulse Rate 132 H 01/18/25 03:52 Respiratory Rate 16 01/18/25 03:52 Blood Pressure 157/125 01/18/25 03:52 Pulse Oximetry 95 01/18/25 03:44 Oxygen Delivery Me thod Nasal Cannula 01/18/25 03:52 Oxygen Flow Rate 4 01/18/25 03:44 MDM - Extremity (Nontraumatic) Medical Decision Making Medical decision making: Differential diagnosis including but not limited to and based on the above HPI, review of systems and physical exam: In this patient with a probable hip dislocation x-rays ordered to make sure there is no fractures and to confirm dislocation. Orders placed to evaluate differential diagnosis based on the above differential, HPI and physical exam CT scan of the head was ordered. I reviewed the patient's medical record. Procedural sedation Time: 3:15 AM. Confirmed: Patient and procedure correct. Consent: Consent: The risks and benefits of monitored anesthesia care, including the risk of aspiration, nausea/vomiting and the risks of not performing the procedure, including severe pain and inability to complete the procedure, were all discussed with the patient. The alternatives of performing the procedure, including local anesthesia and IV analgesia, also discussed. The patient has a [place] home available Indication: Closed reduction. Monitoring: Cardiac, blood pressure, continuous pulse oximetry. Preparation: Suction, IV access, Constant attendance, Supplemental oxygen. ASA Class: I- healthy patient. No significant family history of sedation complications See ER physician note for summary of the patient's present medication list and for drug allergy and intolerance history Physical exam: Airway: appears normal, Heart: regular rate and rhythm, Breath sounds: equal. Pre sedation vital signs: See nurse's notes. Procedural sedation: 100 mg IV propofol. . Post sedation vital signs: See nurse's notes. Patient tolerated: Well. Complications: The patient was recovered from the sedation without complication or incident. Post sedation condition: Patient returned to pre-sedation level of awareness. The monitoring was discontinued at this time. Performed by: Self. Notes: Pt attended by independent trained observer time of sedation was 15 minutes. . Fracuture / Dislocation procedure Time: 3:15 AM Confirmed correct: Patient, procedure, sight. Consent: Patient Indication: Dislocation Location: Right hip. Pre procedure exam: Sensory intact, Procedural sedation: (repeat): IV propofol 100 mg Monitoring: Cardiac, blood pressure and pulse oximiter Technique: traction - counter traction. Post-procedure exam: _ alignment improved, circulatory neuro intact. Immobilization: Knee immobilizer as per orthopedics. Patient tolerated: Well Complications: None Performed by (rpt): Self Procedure time: 10 minutes Postreduction films of the right hip: This shows resolution of hip dislocation and reduction. This was reviewed and interpreted by myself the emergency room physician. I also reviewed the radiology report. Films were interpreted by myself the emergency room provider and pending final radiology review. Consultation: I left a message Dr. Borjas who will follow with the patient. Assessment and plan: Hip dislocation, prosthetic hip ?Hip reduced. Patient awake and ready to go home. - Discharged home - Discussed plan with patient. Answered any questions. - Evaluation and treatment of this problem were appropriate in the emergency setting. XR interpretation done by ED provider, pending radiology final review Discharge Plan Discharge Patient Disposition: Home Clinical Impression: Dislocation of hip prosthesis Condition: Stable Prescriptions: No Action hydrocodone-acetaminophen 5-325 mg tablet 1 tab PO Q6H PRN (Reason: pain) Qty: 12 0RF promethazine 25 mg tablet 25 mg PO Q6H PRN (Reason: nausea and vomiting) Qty: 10 0RF Discharge Orders: Discharge ED (Routine); Ordered 01/18/25 Ordered By: Emma Wright Referrals: Piotr Borjas MD [Referring, Orthopedics] - 4-7 days Referral Note: Please call for a follow-up appointment Gonsales,TRISTAN Garsia [Primary Care Provider, Nurse Practitioner] Discharge Diet: Usual diet Discharge Activity: Increase activity as tolerated Patient Instructions: Opioid Safety, Pain Management, Patient Portal & Hiren Instructions Activity Restrictions/Additional Instructions: Thank you for choosing [facility] for your healthcare needs today. You have been screened and evaluated and felt safe for discharge. Health conditions do change or evolve sometimes and as such it is important that you follow up with your Primary Doctor to be re checked, 3-5 days is a general good time frame for follow up. You are always welcome to return to the ED for re assessment if your symptoms are worsening or you have new concerns Print Language: French Coding Level of Care Code ED Director Of Teacher Education for Dc Daley
[2025-01-18] MEDS: propofol 10 mg/mL SDV 20 mL 100 MG IVP (03:23)
--- NOTE | 2025-01-18 03:26 | XRR_ITS ---
PROCEDURE INFORMATION: Exam: XR Right Hip Exam date and time: 01/18/2025 3:40 AM Age: 69 years old Clinical indication: Other: Post red; Prior surgery; Surgery date: 6+ months; Surgery type: Hip replacement; Additional info: Post reduction TECHNIQUE: Imaging protocol: Radiologic exam of the right hip. Views: 1 view hip with pelvis when performed. COMPARISON: CR (PELVIS, ) 01/18/2025 2:30 AM FINDINGS: Bones/joints: Interval reduction of previous right hip dislocation. Normal configuration restored. No periprosthetic fracture. Soft tissues: Soft tissue fullness about the right hip. XR/XR hip RT 2-3V wo/w pel* [id number] IMPRESSION: Successful reduction of right hip dislocation.
== END 2025-01-18 05:19 | disposition home or self-care (01) ==
PROVIDERS: Emergency Provider Emergency Medicine; PCP Nurse Practitioner Family
DX: T84.020A Dislocation of internal right hip prosthesis, initial encounter (principal); Y79.2 Prosthetic and other implants, materials and accessory orthopedic devices associated with adverse incidents
CPT/HCPCS: 27265; 73502; 93005; 99285; J2704